=== PATIENT | male | born 1940 | race Caucasian/White ===

== ENCOUNTER 2016-04-07 07:31 | Outpatient (CLI) | payer MEDICARE, OTHER | END 2016-04-07 07:32 | disposition home or self-care (01) | DX: Z86.79 Personal history of other diseases of the circulatory system (principal); C61 Malignant neoplasm of prostate; I25.10 Atherosclerotic heart disease of native coronary artery without angina pectoris; E11.8 Type 2 diabetes mellitus with unspecified complications ==